=== PATIENT | male | born 1960 | race Two or more races ===

== ENCOUNTER 2024-05-23 16:45 | Emergency (ER) | payer BC, SELFPAY ==
[2024-05-23 16:51] VITALS: BP 122/85
[2024-05-23 17:00] VITALS: BP 124/73
[2024-05-23] MEDS: NSS 1000 IV (17:22)
--- NOTE | 2024-05-23 17:22 | ED.GENMED ---
History of Present Illness
General
Chief Complaint: Fainting/Passed Out
Source: patient and family
Exam Limitations: none
Time Seen by Provider: 05/23/24 16:47
Nursing documentation reviewed up to this point in time: agreed with
History of Present Illness
History of Present Illness:
63-year-old male rheumatoid arthritis status post left total knee replacement with Dr. Gross earlier today same-day discharge was at home doing physical therapy sat down and felt flushed like he may pass out apparently passed out for about 30
seconds, no seizure-like activity no tongue bite no head strike, no chest pain no shortness of breath no fever chills and only ate an Oreo cookie today, apparently his blood sugar was 125 by EMS, and his blood pressure dropped when he stood, here he
is without complaints
Past History
Past History
ED Past Medical History: Other (Rheumatoid arthritis)
ED Past Surgical History: Orthopedic
Social History
Tobacco: Non-smoker
Alcohol: None
Drug: None
Personal:
Living: with family
Employment: Employed
Review of Systems
Review of Systems
All Other Systems: Not applicable
Constitutional: Denies fatigue
EENT: Reports no symptoms
Respiratory: Reports no symptoms
Cardiac: Reports syncope; Denies chest pain or palpitations
ABD/GI: Reports no symptoms
: Reports no symptoms
Musculoskeletal: Reports joint pain (Mild at the surgery site)
Neurological: Reports no symptoms
Endocrine: Reports temp intolerance
Phy Exam
Physical Exam
Physical Exam:
Physical Exam
General: no apparent distress, not acutely ill
Neck: No tongue bite no posterior neck
Heart: Regular without tachycardia
Lungs: no acute respiratory distress. clear bilaterally no tachypnea
Neuro: alert and oriented. no focal neurological deficits
Skin: no rash
Psychiatric: well kept. interactive and cooperative
Extremities: No calf pain bilateral surgical stockings in place
Course
Orders/Labs/Results
Orders:
Orders
05/23/24 16:58
Complete Blood Count/With Diff Urgent
Comprehensive Metabolic Panel Urgent
05/23/24 17:05
Electrocardiogram (*1) Urgent
Reason for Study: Syncope
EKG- Treatment ONCE
0.9% Sodium Chloride 1000 ml [Nss] 1,000 ml IV BOLUS
Abnormal Lab Results
05/23/24
16:58
WBC 13.9 H 10^3/uL
(4.8-10.8)
RBC 4.68 L 10^6/uL
(4.70-6.10)
Abs Immat Gran (auto) 0.1 H 10^3/uL
(0-0.05)
Absolute Neuts (auto) 12.7 H 10^3/uL
(1.4-6.5)
Absolute Lymphs (auto) 0.7 L 10^3/uL
(1.2-3.4)
Neutrophils % 91.4 H %
(42.2-75.2)
Lymphocytes % 4.8 L %
(20.5-51.1)
Carbon Dioxide 20 L mmol/L
(22-30)
Glucose 132 H mg/dl
(70-99)
05/23/24 16:58
05/23/24 16:58
Vital Signs
Initial and Last Documented VS:
Initial Vital Signs
Temp Pulse Resp BP Pulse Ox
98.1 F 78 18 122/85 96
05/23/24 16:51 05/23/24 16:51 05/23/24 16:51 05/23/24 16:51 05/23/24 16:51
Last Documented Vital Signs
Temp Pulse Resp BP Pulse Ox
98.1 F 81 20 124/73 95
05/23/24 16:51 05/23/24 17:15 05/23/24 17:15 05/23/24 17:00 05/23/24 17:15
MDM/Problems Addressed
Differential Diagnosis Includes:
Orthostasis vasovagal secondary to pain hyperglycemia arrhythmia doubt PE
MDM/Problems Addressed:
Syncope
*Pulse Oximetry
Patient hypoxic: no
*EKG
Interpreted by ED Provider?: Yes
Interpretation: normal
Comparison EKG: no comparison EKG present
Heart Rate: 72
Rate: normal
Rhythm: sinus
Ischemia: no ischemia
*[employer] Directional Interpretation
Rate: normal
Interpretation: normal
Heart Rate: 78
Rhythm: sinus
*Critical Care Note
Total Time (30-74mins, 75-104mins- exclusive of procedures): Not Applicable
Update Note
Update Note:
Update, patient symptomatic with orthostatics, has not eaten today, will hydrate and allow him to eat, EKG campus monitor without any arrhythmia
Update 715 patient feeling better he had some dinner
ED Attending Note
-
Portions of this chart may have been created with voice recognition software.� Occasional wrong word or��sound alike� substitutions may have occurred due to the inherent limitations of voice recognition software.
Discharge Plan
Departure
Patient Disposition: Home (Routine Discharge)
Date of Disposition: 05/23/24
Time of Disposition: 19:16
Patient with high blood pressure during this ER visit?: No
Condition: Good
Covid-19: Not Applicable
Discharge Problem:
Syncope
Instructions: Syncope (Fainting) (DC), Orthostatic hypotension
Referrals:
Nico Orona, [Family Provider] - Next open appointment
Activity Restrictions/Additional Instructions:
Treat plenty of fluids, continue medications as prescribed by your orthopedist,
Interventions
Interventions:
*Risk Screen - Suicide Last Done: 05/23/24 16:51
*General Assessment Last Done: 05/23/24 16:51
*Neglect/Abuse Screening Last Done: 05/23/24 16:51
ED- Cardiac Assessment Last Done: 05/23/24 17:17
ED- Neurological Assessment Last Done: 05/23/24 17:17
Discharge Date and Time
Print Language: WELSH
[2024-05-23 17:28] LABS: % Basophils 0.1 % (0-2); % Immature Granulocytes 0.5 % (0-0.5); % Lymphocytes 4.8 % (20.5-51.1); % Monocytes 3.2 % (1.7-9.3); % Neutrophils 91.4 % (42.2-75.2); Absolute Immature Granulocytes 0.1 10^3/uL (0-0.05); Absolute Lymphocytes 0.7 10^3/uL (1.2-3.4); Absolute Monocytes 0.5 10^3/uL (0.1-0.6); Absolute Neutrophils 12.7 10^3/uL (1.4-6.5); Hematocrit 39.4 % (39.0-52.0); Hemoglobin 14.4 g/dL (13.0-18.0); Mean Corp Hgb Conc. 36.5 g/dL (33.0-37.0); Mean Corpuscular Hgb 30.8 pg (27.0-31.0); Mean Corpuscular Volume 84.2 fL (80.0-94.0); Nucleated Red Blood Cells % 0 % (-); Platelet Count 233 10^3/uL (130-400); Red Blood Cell Count 4.68 10^6/uL (4.70-6.10); Red Cell Dist. Width 12.3 % (11.5-14.5); White Blood Cell Count 13.9 10^3/uL (4.8-10.8)
[2024-05-23 17:32] LABS: ALT (SGPT) 26 U/L (0-50); AST (SGOT) 30 U/L (17-59); Albumin 4.5 g/dl (3.5-5.0); Alkaline Phosphatase 49 U/L (38-126); Blood Urea Nitrogen 14 mg/dl (9-20); Calcium 8.9 mg/dl (8.4-10.2); Carbon Dioxide 20 mmol/L (22-30); Chloride 104 mmol/L (98-107); Glucose 132 mg/dl (70-99); Potassium 4.2 mmol/L (3.5-5.1); Sodium 139 mmol/L (135-145); Total Protein 6.7 g/dl (6.3-8.2); eGFR > 60.00
[2024-05-23 17:40] VITALS: BP 118/68; BP 122/76; BP 85/58; PULSE 71; PULSE 80; PULSE 85
== END 2024-05-23 20:32 | disposition home or self-care (01) ==
LOC: EMR 16:45
PROVIDERS: EMERGENCY PHYSICIAN Emergency Medicine; FAMILY PHYSICIAN Student in an Organized Health Care Education/Training Program
DX: R55 Syncope and collapse (principal); M06.9 Rheumatoid arthritis, unspecified; Z96.652 Presence of left artificial knee joint
CPT/HCPCS: 99284; 96360; 80053; 85025; 93005